=== PATIENT | female | born 1935 | race Caucasian/White ===

== ENCOUNTER → 2016-11-07 | Outpatient (CLI) | payer MEDICARE ==
[~2016-11-07] MED LIST: BAYER ASPIRIN R81 MG PO; BYSTOLIC5 MG PO; DETROL LA 2 MG C2 MG PO; FOSAMAX70 MG PO; HCTZ/TRIAMTEREN1 CAP PO; LOMOTIL 2.5MG.2.5 MG PO; OCUVITE1 TA1 PO; PROMETHAZINE HC25 M1 PO; PROPRANOLOL ER80 MG PO; SIMVASTATIN10 MG OR; TRAMADOL 50MG T50 MG PO; ZANTAC 150150 MG PO; ZOFRAN4 MG PO
--- NOTE | 2016-11-12 08:40 | RADIOLOGY REPORT PS360 ---
DIG MAMM-DX UNI A/VWS-LT W/CAD, US BREAST-LT COMPLETE W/AXILLA COMPARISON: Multiple previous exams including 1220 11/04 and 09/26/2015 INDICATION: Follow-up abnormal mammogram ORDERING PHYSICIAN: Kelly Dasilva MD PATIENT AGE: 81 years TECHNIQUE: Routine images obtained with spot compression views and left breast ultrasound FINDINGS: There are several nodules present in the left breast none of which are particularly suspicious. A persistent 4 mm nodules present in the upper aspect of the left breast. The asymmetric density in the medial aspect of the left breast mostly compresses out the stent 4 mm nodular opacity in this area. Left breast ultrasound: There are several cystic areas noted throughout the breast including a 4 mm complex cyst at 1:00, 3 mm complex cyst at 2:00, 4 mm complex cyst 5:00, 8 mm complex cyst at 6:00, 3 mm complex cyst at 9:00, 5 mm complex cyst nipple IMPRESSION: Probably benign findings. No suspicious nodules evident BI-RADS CATEGORY: 3_Probably Benign-Short Term F/U RECOMMENDED FOLLOWUP: 6 month mammographic and sonographic follow-up (A letter has been sent to the patient regarding results of the study.)
== END ==
LOC: RAD 10:00
DX: R92.8 Other abnormal and inconclusive findings on diagnostic imaging of breast (principal)
CPT/HCPCS: G0206-LT